=== PATIENT | female | born 1995 | race African-American/Black ===

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

== ENCOUNTER 2017-07-04 08:09 | Emergency (ER) | payer MEDICAID ==
[~2017-07-04] VITALS: Ht 165.1 cm; Wt 118.0 kg
[~2017-07-04 08:09] MED LIST changes: +AMOX875T PO; +IBUP1TAB7 PO
[2017-07-04 08:10] VITALS: BP 169/91; PULSE 76; RESP 16; TEMP 98.4; O2SAT 98
[2017-07-04] MEDS ORDERED: VENTAER INH (08:22)
[2017-07-04] MEDS ORDERED: ALBU1.25 NEB (08:22)
--- NOTE | 2017-07-04 08:41 | PD ---
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 She states her roommate has it also. She denies any sexual contact with a roommate. She denies any urinary symptoms, abdominal pains, fevers, discharge, or any other issues. Modifying Factors: None Associated Signs & Symptoms: Vaginal area itching Risk Factors: Possible sick contact, roommate PFSH Past Medical History Asthma: Yes Cardiovascular Problems: No (anemia) Diminished Hearing: No Respiratory: Yes (ASTHMA) Immunizations Current: Yes ?: Not LMP: 07/01/17 Past Surgical History Surgical History: No Previous Surgery Abdominal Surgery: No Cardiac Surgery: No Ear Surgery: No Endocrine Surgery: No Eye Surgery: No Genitourinary Surgery: No Gynecologic Surgery: No Neurologic Surgery: No Oral Surgery: No Thoracic Surgery: No Other Surgery: Yes Social History Alcohol Use: No Tobacco Use: No Substance Use: No Allergies-Medications (Allergen,Severity, Reaction): Coded Allergies: cimetidine (Unverified Allergy, Mild, POSITIVE ALLERGY TEST, 07/04/17) famotidine (Unverified Allergy, Mild, POSITIVE ALLERGY TEST, 07/04/17) ranitidine (Unverified Allergy, Mild, POSITIVE ALLERGY TEST, 07/04/17) Reported Meds & Prescriptions Reported Meds & Active Scripts Active Reported Ventolin Hfa 18 GM Inh (Albuterol Sulfate) 90 Mcg/Act Aer 1 Puff INH Q4H PRN Albuterol Neb (Albuterol Sulfate) 1.25 Mg/3 Ml Neb 1.25 Mg NEB Q4HR NEB PRN Review of Systems Except as stated in HPI: all other systems reviewed are Neg Physical Exam Narrative GENERAL: Well-developed young -Turkmen female patient currently none acute distress. Awake and oriented 3. SKIN: Focused skin assessment warm/dry. HEAD: Atraumatic. Normocephalic. EYES: Pupils equal and round. No scleral icterus. No injection or drainage. ENT: No nasal bleeding or discharge. Mucous membranes pink and moist. NECK: Trachea midline. No JVD. CARDIOVASCULAR: Regular rate and rhythm. No murmur appreciated. RESPIRATORY: No accessory muscle use. Clear to auscultation. Breath sounds equal bilaterally. GASTROINTESTINAL: Abdomen soft, non-tender, nondistended. Hepatic and splenic margins not palpable. MUSCULOSKELETAL: No obvious deformities. No clubbing. No cyanosis. No edema. NEUROLOGICAL: Awake and alert. No obvious cranial nerve deficits. Motor grossly within normal limits. Normal speech. PSYCHIATRIC: Appropriate mood and affect; insight and judgment normal. Data Data Last Documented VS Vital Signs Date Time Temp Pulse Resp B/P (MAP) Pulse Ox O2 Delivery O2 Flow Rate FiO2 07/04/17 09:21 78 18 07/04/17 09:21 140/62 (88) 98 Room Air 07/04/17 08:10 98.4 Orders Orders Gc And Chlamydia Pcr (07/04/17 08:29) Wet Prep Profile (07/04/17 08:29) Urinalysis - C+S If Indicated (07/04/17 08:29) Ed Urine Pregnancytest Poc (07/04/17 08:29) Urine Culture (07/04/17 08:10) Ed Discharge Order (07/04/17 09:55) Labs Laboratory Tests Test 07/04/17 08:10 07/04/17 09:15 Urine Color YELLOW Urine Turbidity CLOUDY Urine pH 6.5 Urine Specific [place] 1.022 Urine Protein 30 mg/dL Urine Glucose (UA) NEG mg/dL Urine Ketones NEG mg/dL Urine Occult Blood MOD Urine Nitrite NEG Urine Bilirubin NEG Urine Urobilinogen LESS THAN 2.0 MG/DL Urine Leukocyte Esterase LARGE Urine RBC 176 /hpf Urine WBC /hpf Urine Squamous Epithelial Cells 18 /hpf Urine Bacteria OCC /hpf Urine Mucus FEW /lpf Microscopic Urinalysis Comment CULTURE INDICATED Clue Cells (Wet Prep) NONE SEEN Vaginal Trichomonas (Wet Prep) PRESENT Vaginal Yeast (Wet Prep) NONE SEEN MDM Medical Decision Making Medical Screen Exam Complete: Yes Emergency Medical Condition: Yes Medical Record Reviewed: Yes Interpretation(s) Laboratory Tests Test 07/04/17 08:10 07/04/17 09:15 Urine Turbidity CLOUDY (CLEAR) Urine Protein 30 mg/dL (NEG-TRACE) Urine Occult Blood MOD (NEG) Urine Leukocyte Esterase LARGE (NEG) Urine RBC 176 /hpf (0-3) Urine Bacteria OCC /hpf (NONE) Urine Mucus FEW /lpf (OCC) Vaginal Trichomonas (Wet Prep) PRESENT (NONE) Differential Diagnosis Vaginal area itching: Vaginitis versus cervicitis versus BV Narrative Course UA shows significant UTI with wet prep showing Trichomonas. At this point, my plan would be to treat her for both and have her follow-up with AUDIO DIRECTOR or primary care doctor symptoms do not improve. Return for worsening in symptoms as needed. The plan has been discussed with her she states understanding. Her sexual partners also need to be treated, no sharing of sex toys. Diagnosis Primary Impression: UTI (urinary tract infection) Additional Impression: Trichomonas vaginitis Med/Other Pt SpecificInfo: Prescription(s) given Scripts Metronidazole (Flagyl) 500 Mg Tab 500 MG PO TID for Infection for 7 Days, TAB 0 Refills Prov: Shivani Mauro MD 07/04/17 Nitrofurantoin Monohydrate Macrocrystals (Macrobid) 100 Mg Cap 100 MG PO BID for Infection for 7 Days, #14 CAP 0 Refills Prov: Shivani Mauro MD 07/04/17 Disposition: 01 DISCHARGE HOME Condition: Stable Shivani Mauro MD Jul 04, 2017 08:41
[2017-07-04 09:10] LABS: BACTERIA, URINE OCC /hpf; BLOOD, URINE MOD (NEG); COMMENT (UR) CULTURE INDICATED; CULTURE IF INDICATED CULTURE INDICATED; GLUCOSE,URINE NEG (NEG); KETONE, URINE NEG (NEG); MUCUS URINE FEW /lpf (OCC); NITRITE,URINE NEG (NEG); PH, URINE 6.5 (5.0-8.5); SQUAMOUS EPITHELIAL CELL URINE 18 /hpf (0-5); URINE COLOR YELLOW (YELLW/STRAW)
[2017-07-04 09:21] VITALS: BP 140/62; PULSE 78; RESP 18; O2SAT 98
[2017-07-04] MEDS ORDERED: MACR100C2 PO (09:58)
[2017-07-04] MEDS ORDERED: METR-1 PO (09:58)
[2017-07-04] MEDS ORDERED: metroNIDAZOLE 500 MG TAB PO ONE (10:00)
[2017-07-04] MEDS ORDERED: NITROFURANTOIN MONOHYD MACROCR 100 MG CAP PO ONE (10:00)
[2017-07-04 10:35] VITALS: BP 142/60
[2017-07-04 11:46] LABS: CHLAMYDIA PCR NOT DETECTED (NOT DETECT); NEISSERIA PCR NOT DETECTED (NOT DETECT)
== END 2017-07-04 10:36 | disposition home or self-care (01) ==
LOC: NEPC 08:09
DX: N39.0 Urinary tract infection, site not specified (principal); A59.01 Trichomonal vulvovaginitis; B95.1 Streptococcus, group B, as the cause of diseases classified elsewhere
CPT/HCPCS: 81001; 84703; 87086; 87210; 87491; 87591; 99284

== ENCOUNTER 2017-09-20 15:14 | Emergency (ER) | payer SELFPAY ==
[~2017-09-20] VITALS: Ht 162.6 cm; Wt 121.0 kg
[~2017-09-20 15:14] MED LIST changes: +ALBU1.25 NEB; -AMOX875T PO; -FERR324T4 PO; -IBUP1TAB7 PO; +MACR100C2 PO; +METR-1 PO; +VENTAER INH
[2017-09-20 15:27] VITALS: BP 139/84; PULSE 78; RESP 16; TEMP 98.3; O2SAT 99
[2017-09-20 16:31] LABS: BILIRUBIN, URINE NEG (NEG); BLOOD, URINE NEG (NEG); GLUCOSE,URINE NEG (NEG); KETONE, URINE NEG (NEG); NITRITE,URINE NEG (NEG); URINE LEUKOCYTE ESTERASE TRACE (NEG)
[2017-09-20 16:32] LABS: URINE COLOR YELLOW (YELLW/STRAW)
[2017-09-20 16:35] LABS: BACTERIA, URINE OCC /hpf; RBC, URINE 0-2 /hpf (0-3); SQUAMOUS EPITHELIAL CELL URINE > 8 /hpf (0-5)
--- NOTE | 2017-09-20 16:42 | PD ---
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 Symptoms started 4 days ago. She reports white vaginal discharge with associated itching , no aggravating leaving factors. She reports that she has had yeast infections in the past and this feels similar. She reports that she recently used nare for hair removal and doesn't know if this is related. Sexually active with 1 partner. Denies abdominal pain, nausea or vomiting, dysuria, flank pain. Denies recent antibiotic use. She has no other complaints at this time. [facility] Past Medical History Medical History: Denies Significant Hx Asthma: Yes Cardiovascular Problems: No (anemia) Diminished Hearing: No Respiratory: Yes (ASTHMA) Immunizations Current: Yes Tetanus Vaccination: > 5 Years Influenza Vaccination: No ?: Not LMP: 08/22/17 Past Surgical History Surgical History: No Previous Surgery Abdominal Surgery: No Cardiac Surgery: No Ear Surgery: No Endocrine Surgery: No Eye Surgery: No Genitourinary Surgery: No Gynecologic Surgery: No Neurologic Surgery: No Oral Surgery: No Thoracic Surgery: No Other Surgery: Yes Social History Alcohol Use: No Tobacco Use: No Substance Use: No Allergies-Medications (Allergen,Severity, Reaction): Coded Allergies: cimetidine (Unverified Allergy, Mild, POSITIVE ALLERGY TEST, 09/20/17) famotidine (Unverified Allergy, Mild, POSITIVE ALLERGY TEST, 09/20/17) ranitidine (Unverified Allergy, Mild, POSITIVE ALLERGY TEST, 09/20/17) Reported Meds & Prescriptions Reported Meds & Active Scripts Active Diflucan (Fluconazole) 150 Mg Tab 150 Mg PO ONCE Review of Systems Except as stated in HPI: all other systems reviewed are Neg Physical Exam Narrative GENERAL: Well-developed well-nourished female in no acute distress SKIN: Warm and dry. HEAD: Atraumatic. Normocephalic. EYES: Pupils equal and round. No scleral icterus. No injection or drainage. ENT: No nasal bleeding or discharge. Mucous membranes pink and moist. NECK: Trachea midline. No JVD. CARDIOVASCULAR: Regular rate and rhythm. No murmur appreciated. RESPIRATORY: No accessory muscle use. Clear to auscultation. Breath sounds equal bilaterally. GASTROINTESTINAL: Abdomen soft, non-tender, nondistended. Hepatic and splenic margins not palpable. Pelvic examination in the presence of a female nurse: There is some white discharge noted in vaginal canal. There is no cervical motion tenderness or adnexal tenderness. Data Data Last Documented VS Vital Signs Date Time Temp Pulse Resp B/P (MAP) Pulse Ox O2 Delivery O2 Flow Rate FiO2 09/20/17 15:27 98.3 78 16 139/84 (102) 99 Orders Orders Urinalysis - C+S If Indicated (09/20/17 16:18) Ed Urine Pregnancytest Poc (09/20/17 16:18) Urine Culture (09/20/17 16:15) Gc And Chlamydia Pcr (09/20/17 16:38) Wet Prep Profile (09/20/17 16:38) Ed Discharge Order (09/20/17 17:14) Labs Laboratory Tests Test 09/20/17 16:15 09/20/17 16:55 Urine Color YELLOW Urine Turbidity SLIGHT Urine pH 7.0 Urine Specific [place] 1.018 Urine Protein NEG mg/dL Urine Glucose (UA) NEG mg/dL Urine Ketones NEG mg/dL Urine Occult Blood NEG Urine Nitrite NEG Urine Bilirubin NEG Urine Leukocyte Esterase TRACE Urine RBC 0-2 /hpf Urine WBC 9-14 /hpf Urine Squamous Epithelial Cells > 8 /hpf Urine Bacteria OCC /hpf Microscopic Urinalysis Comment CULTURE INDICATED Clue Cells (Wet Prep) NONE SEEN Vaginal Trichomonas (Wet Prep) NONE SEEN Vaginal Yeast (Wet Prep) NONE SEEN MDM Medical Decision Making Medical Screen Exam Complete: Yes Emergency Medical Condition: Yes Medical Record Reviewed: Yes Differential Diagnosis Candidal vaginitis versus bacterial vaginosis versus pelvic inflammatory disease versus cervicitis Narrative Course 21-year-old female with 4 days of white vaginal discharge and itching. She has had yeast infection in the past. I offered to treat the patient empirically for fungal vaginitis however the patient preferred pelvic examination. Therefore pelvic examination was performed in the presence of female nurse, GC probe and wet prep were obtained. Wet prep is negative but examination is consistent with candidal vaginitis. Therefore the patient will be treated with Diflucan. Diagnosis Primary Impression: Vaginal discharge Additional Instructions: Medications prescribed. Follow-up with primary care physician as needed. Return for any emergent medical conditions. Med/Other Pt SpecificInfo: Prescription(s) given Scripts Fluconazole (Diflucan) 150 Mg Tab 150 MG PO ONCE for Infection, #1 TAB 0 Refills Prov: Jaron Angelo MD 09/20/17 Disposition: 01 DISCHARGE HOME Condition: Stable Jonny Ferrell Sep 20, 2017 16:42
[2017-09-20] MEDS ORDERED: DIFL150T PO (17:14)
[2017-09-20 17:20] VITALS: BP 169/70
== END 2017-09-20 17:21 | disposition home or self-care (01) ==
LOC: PHEFT 15:14
DX: N89.8 Other specified noninflammatory disorders of vagina (principal); R82.99 Other abnormal findings in urine; J45.909 Unspecified asthma, uncomplicated; Z88.8 Allergy status to other drugs, medicaments and biological substances
CPT/HCPCS: 81001; 84703; 87086; 87210; 87491; 87591; 99284

== ENCOUNTER 2018-01-28 02:14 | Emergency (ER) | payer SELFPAY ==
[~2018-01-28 02:14] MED LIST changes: -ALBU1.25 NEB; +DIFL150T PO; -MACR100C2 PO; -METR-1 PO; -VENTAER INH
[2018-01-28 02:16] VITALS: BP 160/68; PULSE 75; RESP 16; TEMP 98; O2SAT 97
--- NOTE | 2018-01-28 02:32 | PD ---
HPI Chief Complaint: ENT Complaint Time Seen by Provider: 02:27 Travel History International Travel<30 days: No Contact w/Intl Traveler<30days: No Traveled to known affect area: No History of Present Illness HPI 22-year-old white female presents emergency department with complaints of sore throat and left ear pain over the last 2-3 days. She denies any fever chills. No runny nose, cough or congestion. No nausea vomiting. No abdominal pain or diarrhea. No dysuria or frequency. Symptoms are mild. She has not taken anything for her symptoms as of yet. History Past Medical Histgory Narrative Medical Asthma Tetanus Vaccination: < 5 Years Past Surgical History Surgical History: No Previous Surgery Social History Alcohol Use: No Tobacco Use: No Allergies-Medications (Allergen,Severity, Reaction): Coded Allergies: No Known Allergies (Unverified , 01/28/18) Reported Meds & Prescriptions Reported Meds & Active Scripts Active Diflucan (Fluconazole) 150 Mg Tab 150 Mg PO ONCE Review of Systems Except as stated in HPI: all other systems reviewed are Neg Physical Exam Narrative GENERAL: Well-developed, well-nourished in no acute distress. Nontoxic appearing. HEAD: Normocephalic, atraumatic. EYES: Pupils equal round and reactive. Extraocular motions intact. No scleral icterus. No injection or drainage. ENT: TMs clear without erythema. The external auditory canals clear. Nose: clear . Posterior pharynx is mildly erythematous and moist. No tonsillar edema or exudate. Uvula midline. Airway patent. NECK: Trachea midline.Supple, nontender, moves head freely. No central bony tenderness or spasm. CARDIOVASCULAR: Regular rate and rhythm without murmurs, gallops, or rubs. RESPIRATORY: Clear to auscultation. Breath sounds equal bilaterally. No wheezes , rales, or rhonchi. GASTROINTESTINAL: Abdomen soft, non-tender, nondistended. No hepato-splenomegaly , or palpable masses. No guarding. EXTREMITIES: No clubbing, cyanosis, or edema. No joint tenderness, effusion, or edema noted. BACK: Nontender without deformity or crepitance. No flank tenderness. Data Data Last Documented VS Vital Signs Date Time Temp Pulse Resp B/P (MAP) Pulse Ox O2 Delivery O2 Flow Rate FiO2 01/28/18 02:16 98.0 75 16 160/68 (98) 97 MDM Medical Screen Exam Complete: Yes Emergency Medical Condition: No Differential Diagnosis Differential diagnosis: Viral pharyngitis, strep throat, otitis media, otitis externa, URI Narrative Course A medical screening exam was performed: At the time of evaluation the presenting medical condition was determined not to be of an emergent nature. The patient was given the option of receiving additional care, but declined. Patient was given options for additional community resources from which to obtain care. The Patient Has Been advised to seek medical attention for their presenting complaint. The patient has been advised to return to the ER at any time if an emergent condition develops. Primary Impression: Encounter for medical screening examination Condition: Stable Humberto Del Valle Jan 28, 2018 02:32
== END 2018-01-28 02:49 | disposition left against medical advice (07) ==
LOC: NEPD 02:14
DX: R07.0 Pain in throat (principal); H92.02 Otalgia, left ear
CPT/HCPCS: 99281